=== PATIENT | female | born 1965 | race Caucasian/White ===

== ENCOUNTER 2019-08-04 01:00 | Emergency (ER) | payer OTHER ==
[~2019-08-04] VITALS: Ht 160 cm; Wt 77.1 kg
[2019-08-04 01:02] VITALS: BP 168/84
--- NOTE | 2019-08-04 01:15 | NUR ---
54 YEAR OLD FEMALE COMPLAINS OF SHORTNESS OF BREATHE X 11PM. PATIENT STATES SHE HAS HAD A COUGH X 1 WEEK. PATIENT LUNGS WHEEZING BILATERALLY ON EXPIRATION, SPO2 98%, RR 20. BREATHING LABORED. PATIENT AOX4, SKIN WARM AND DRY. ERMD MADE AWARE OF PT STATUS, PT PLACED ON BEDSIDE MONITOR. RT CALLED. BED IN LOWEST POSITION, LOCKED, BED RAIL UPX1. PMH - ASTHMA ALLERGIES - PCN
--- NOTE | 2019-08-04 01:17 | NUR ---
pt ambulated to bed 8.
[2019-08-04] MEDS ORDERED: predniSONE 20 MG TAB PO ONE (01:20)
[2019-08-04] MEDS ORDERED: ALBUTEROL SULFATE/IPRATROPIU 3 ML SOL IH ONE (01:20)
[2019-08-04 01:55] VITALS: BP 168/84
--- NOTE | 2019-08-04 01:55 | NUR ---
Discharge done by Dr Araujo. Patient discharged with v/s stable. Written and verbal after care instructions about asthma given and explained. Patient alert, oriented and verbalized understanding of instructions. Ambulatory with steady gait. All questions addressed prior to discharge. ID band removed. Patient advised to follow up with PMD. Rx of prednisone, albutrol sulfate, and inspiration nebulizer given. Patient educated on indication of medication including possible reaction and side effects. Opportunity to ask questions provided and answered.
== END 2019-08-04 01:55 | disposition home or self-care (01) ==
LOC: MED 01:00
DX: J45.901 Unspecified asthma with (acute) exacerbation (principal); Z88.0 Allergy status to penicillin
CPT/HCPCS: 99283; J7512; 94640